=== PATIENT | male | born 1975 | race Caucasian/White ===

== ENCOUNTER → 2020-05-16 14:52 | Outpatient (CLI) | payer SELFPAY ==
--- NOTE | ~2020-05-16 | XR_ITS ---
XR thoracic spine 3V 05/16/2020 15:24 Indication: Acute neck pain. Back pain. Procedure: 3 views thoracic spine Comparison: No prior studies for comparison. Findings: Vertebral body heights are maintained. No fracture, subluxation or dislocation. No paraspin al soft tissue abnormality. Surrounding osseous structures and soft tissues are unremarkable. Pedicle s intact. Impression: 1: No significant abnormality of the thoracic spine. Reviewed, dictated and finalized at location A. [employer]IST Impression: 1: No significant abnormality of the thoracic spine.
--- NOTE | ~2020-05-16 | XR_ITS ---
XR_[id number]_CR 05/16/2020 15:24 Indication: Acute neck pain Procedure: 3 views cervical spine Comparison: No prior studies for comparison. Findings: Normal cervical alignment. No fracture, subluxation or dislocation. Vertebral body and disc heights are preserved. No prevertebral soft tissue swelling. Lung apices are normal. Impression: 1: No significant abnormality of the cervical spine. Reviewed, dictated and finalized at location A. O TECH Impression: 1: No significant abnormality of the cervical spine.
== END ==
PROVIDERS: Visit Provider Family Medicine
DX: M54.2 Cervicalgia (principal); M79.601 Pain in right arm
CPT/HCPCS: 72040; 72072

== ENCOUNTER → 2020-06-11 15:27 | Outpatient (CLI) | payer SELFPAY ==
--- NOTE | ~2020-06-11 | MR_ITS ---
EXAMINATION: MR cervical spine wo con DATE: 06/11/2020 17:04 INDICATION: Right arm pain and numbness. TECHNIQUE: Magnetic resonance imaging (MRI) of the cervical spine was performed without intravenous c ontrast. Sequences included sagittal T2-weighted FSE, sagittal STIR FSE, sagittal T1-weighted FSE, ax ial MERGE, and axial T2-weighted FSE. COMPARISON: Cervical spine radiographs 05/16/2020 FINDINGS: There is 4 degrees levocurvature of cervical spine. Vertebral body heights are normal. Ther e is mildly decreased disc height at C3-C4 and C5-C6. The spinal cord signal intensity is normal. The following disc levels are specifically discussed: C2-C3: The disc does not extend beyond the endplate margin. There is no uncovertebral joint osteoarth ritis. There is no facet joint osteoarthritis. There is no neural foraminal stenosis. There is no trudy tral canal stenosis. C3-C4: The disc does not extend beyond the endplate margin. There is mild bilateral uncovertebral tima nt osteoarthritis. There is mild left facet joint osteoarthritis. There is mild right neural foramina l stenosis. There is no central canal stenosis. C4-C5: The disc does not extend beyond the endplate margin. There is no uncovertebral joint osteoarth ritis. There is mild left facet joint osteoarthritis. There is no neural foraminal stenosis. There is no central canal stenosis. C5-C6: The disc is bulging. There is mild left uncovertebral joint osteoarthritis. There is no facet joint osteoarthritis. There is mild left neural foraminal stenosis. There is mild central canal steno sis with ventral indentation of the spinal cord. C6-C7: There is a right central extrusion. There is mild bilateral uncovertebral joint osteoarthritis . There is mild right facet joint osteoarthritis. There is mild right neural foraminal stenosis. Ther e is mild central canal stenosis with ventral indentation of the spinal cord. C7-T1: The disc does not extend beyond the endplate margin. There is no uncovertebral joint osteoarth ritis. There is mild bilateral facet joint osteoarthritis. There is mild left neural foraminal stenos is. There is no central canal stenosis. IMPRESSION: 1. Mild cervical spondylosis. Reviewed, dictated and finalized at location A.
== END ==
DX: M51.36 Other intervertebral disc degeneration, lumbar region (principal); M47.892 Other spondylosis, cervical region
CPT/HCPCS: 72141